=== PATIENT | male | born 1970 | race Caucasian/White ===

== ENCOUNTER 2016-10-17 22:02 | Emergency (ER) | payer BC ==
[~2016-10-17] VITALS: Ht 185.4 cm; Wt 93.0 kg
[2016-10-17] MEDS ORDERED: NS 1000ml 2,800 ML IVLG ONE (22:45)
[2016-10-17] MEDS ORDERED: Ketorolac 30mg Inj IV ONE (22:45)
[2016-10-17] MEDS ORDERED: Acetaminophen 500mg (ES) tab ORAL ONE (22:45)
[2016-10-17 23:23] LABS: APPEARANCE,URINE CLEAR; KETONES,URINE NEGATIVE (NEGATIVE); NITRITE,URINE NEGATIVE (NEGATIVE); PH,URINE 8 (4.5-8.0); UROBILINOGEN,URINE 4 MG/DL (0.0-1.0)
[2016-10-17 23:26] VITALS: BP 125/64
--- NOTE | 2016-10-17 23:29 | Emergency Room Report ---
History of Present Illness General Chief Complaint: Fever Source: Patient Present Illness HPI Patient presents for report of vomiting Headache bodyache Patient reports symptoms started yesterday at 6 PM Remembers eating something at the gym became nauseated and vomited several times Denies any photophobia He however does have posterior neck pain as well And achiness Patient had initially epigastric discomfort for vomiting Otherwise denies any lower abdominal pain denies any dysuria frequency Allergies: Coded Allergies: PENICILLINS (Verified Allergy, Intermediate, hives, 10/17/16) Patient History Past Medical History: see triage record Pertinent Family History: none Reviewed Nursing Documentation: PMH: Agreed, PSxH: Agreed Nursing Documentation-PMH Past Medical History: No Stated History Review of Systems All Other Systems: negative except mentioned in HPI Physical Exam Vital Signs Date Time Temp Pulse Resp B/P Pulse Ox O2 Delivery O2 Flow Rate FiO2 10/17/16 22:03 102.7 102 20 142/82 94 Room Air Sp02 EP Interpretation: reviewed, normal General Appearance: well appearing, no apparent distress Head: normocephalic, atraumatic Eyes: bilateral eye EOMI, bilateral eye PERRL ENT: hearing grossly normal, normal pharynx, TMs + canals normal, uvula midline Neck: full range of motion, supple, no meningismus, no bony tend Respiratory: lungs clear, normal breath sounds, no rhonchi, no respiratory distress, no retraction, no accessory muscle use Cardiovascular #1: normal peripheral pulses, regular rate, rhythm, no edema, no gallop, no JVD, no murmur Gastrointestinal: normal bowel sounds, non tender, soft, no mass, no organomegaly, non-distended, no guarding, no hernia, no pulsatile mass, no rebound Genitourinary: no CVA tenderness Musculoskeletal: normal inspection Neurologic: oriented x3, responsive, 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, motor strength/ tone normal, sensory intact Psychiatric: mood/affect normal Skin: normal color, no rash, warm/dry, palpation normal Lymphatic: normal inspection, no adenopathy Medical Decision Making Diagnostic Impression: Primary Impression: Fever Additional Impression: Viral syndrome ER Course Multiple differentials considered including but not limited to gastroenteritis, viral syndrome, meningitis Patient's blood work is appropriate, the monocyte percentage is mildly elevated On reevaluation patient does not reveal any obvious nuchal rigidity I had a prolonged discussion with the patient regarding further workup and lumbar puncture evaluation for meningitis However in discussion with the patient given the lack of any obvious bacterial meningitis clinically, patient will have initial conservative outpatient trial If there is any worsening of his symptoms or discomfort patient will be required to return for lumbar puncture examination and further testing Labs Test 10/17/16 23:00 White Blood Count 5.1 K/UL (4.8-10.8) Red Blood Count 5.00 M/UL (4.70-6.10) Hemoglobin 15.6 G/DL (14.2-18.0) Hematocrit 43.0 % (42.0-52.0) Mean Corpuscular Volume 86 FL (80-99) Mean Corpuscular Hemoglobin 31.2 PG (27.0-31.0) Mean Corpuscular Hemoglobin Concent 36.2 G/DL (32.0-36.0) Red Cell Distribution Width 10.7 % (11.6-14.8) Platelet Count 199 K/UL (150-450) Mean Platelet Volume 7.1 FL (6.5-10.1) Neutrophils (%) (Auto) 70.3 % (45.0-75.0) Lymphocytes (%) (Auto) 11.7 % (20.0-45.0) Monocytes (%) (Auto) 16.8 % (1.0-10.0) Eosinophils (%) (Auto) 0.6 % (0.0-3.0) Basophils (%) (Auto) 0.5 % (0.0-2.0) Urine Color Yellow Urine Appearance Clear Urine pH 8 (4.5-8.0) Urine Specific [place] 1.010 (1.005-1.035) Urine Protein Negative (NEGATIVE) Urine Glucose (UA) Negative (NEGATIVE) Urine Ketones Negative (NEGATIVE) Urine Occult Blood Negative (NEGATIVE) Urine Nitrite Negative (NEGATIVE) Urine Bilirubin Negative (NEGATIVE) Urine Urobilinogen 4 MG/DL (0.0-1.0) Urine Leukocyte Esterase Negative (NEGATIVE) Sodium Level 137 mEQ/L (135-145) Potassium Level 3.6 mEQ/L (3.4-4.9) Chloride Level 96 mEQ/L (98-107) Carbon Dioxide Level 24 mEQ/L (20-30) Anion Gap 17 (5-15) Blood Urea Nitrogen 15 mg/dL (7-23) Creatinine 1.2 mg/dL (0.7-1.2) Estimat Glomerular Filtration Rate > 60 mL/min (>60) Glucose Level 108 mg/dL (74-106) Lactic Acid Level 0.70 mmol/L (0.66-2.22) Calcium Level 8.9 mg/dL (8.6-10.2) Total Bilirubin 1.5 mg/dL (0.0-1.2) Direct Bilirubin 0.2 mg/dL (0.1-0.3) Aspartate Amino Transf (AST/SGOT) 19 U/L (5-40) Alanine Aminotransferase (ALT/SGPT) 17 U/L (3-41) Alkaline Phosphatase 49 U/L (40-129) Total Creatine Kinase 138 U/L (38-174) Creatine Kinase MB < 1.5 ng/mL (< 6.7) Creatine Kinase MB Relative Index 1.0 Total Protein 7.0 g/dL (6.6-8.7) Albumin 4.0 g/dL (3.5-5.2) Globulin 3.0 g/dL Albumin/Globulin Ratio 1.3 (1.0-2.7) Lipase 22 U/L (< 60) Chest X-Ray Diagnostic Results EP Interpretation: Yes Findings: no consolidation, no effusion, no pneumothorax Number of Views: 1 Last Vital Signs Date Time Temp Pulse Resp B/P Pulse Ox O2 Delivery O2 Flow Rate FiO2 10/17/16 23:26 102.3 76 12 125/64 96 Room Air Status: improved Disposition: HOME, SELF-CARE Condition: Improved Scripts Ibuprofen* (MOTRIN*) 600 Mg Tablet 600 MG ORAL Q8H Y for For Pain, #30 TAB 0 Refills Prov: ANGELES MARTINEZ D.O. 10/18/16 Referrals: NOT CHOSEN [facility]/MD,REFERRING (PCP) Additional Instructions: Patient is provided with the discharge instructions notified to follow up with primary doctor in the next 2-3 days otherwise return to the er with any worsening symptoms. Please note that this report is being documented using [employer] technology. This can lead to erroneous entry secondary to incorrect interpretation by the dictating instrument. ANGELES MARTINEZ D.O. Oct 17, 2016 23:29
[2016-10-17 23:30] LABS: LEUKOCYTE ESTERASE ,URINE NEGATIVE (NEGATIVE); PROTEIN,URINE NEGATIVE (NEGATIVE)
[2016-10-17 23:41] LABS: BASOPHILS % (AUTO) 0.5 % (0.0-2.0); EOSINOPHILS % (AUTO) 0.6 % (0.0-3.0); LYMPHOCYTES % (AUTO) 11.7 % (20.0-45.0); MEAN CORPUSCULAR HEMOGLOBIN 31.2 PG (27.0-31.0); MEAN CORPUSCULAR HGB CONC 36.2 G/DL (32.0-36.0); MEAN CORPUSCULAR VOLUME 86 FL (80-99); MEAN PLATELET VOLUME 7.1 FL (6.5-10.1); MONOCYTES % (AUTO) 16.8 % (1.0-10.0); NEUTROPHILS % (AUTO) 70.3 % (45.0-75.0); PLATELET COUNT 199 K/UL (150-450); RED CELL DISTRIBUTION WIDTH 10.7 % (11.6-14.8); WHITE BLOOD COUNT 5.1 K/UL (4.8-10.8)
[2016-10-17 23:43] LABS: ALANINE AMINOTRANSFERASE 17 U/L (3-41); ALBUMIN/GLOBULIN RATIO 1.3 (1.0-2.7); ANION GAP 17 (5-15); ASPARTATE AMINO TRANSFERASE 19 U/L (5-40); CALCIUM 8.9 mg/dL (8.6-10.2); CARBON DIOXIDE 24 mEQ/L (20-30); CHLORIDE 96 mEQ/L (98-107); CREATININE 1.2 mg/dL (0.7-1.2); GLOMERULAR FILTRATION RATE > 60 mL/min (>60); HEMOLYSIS 3; LIPASE 22 U/L (< 60); POTASSIUM 3.6 mEQ/L (3.4-4.9); SODIUM 137 mEQ/L (135-145)
[2016-10-17 23:53] LABS: CKMB < 1.5 ng/mL (< 6.7)
[2016-10-18 00:04] LABS: BILIRUBIN,DIRECT 0.2 mg/dL (0.1-0.3)
[2016-10-18] MEDS ORDERED: IBUPROFEN600 MG ORAL (00:27)
[2016-10-18 00:42] VITALS: BP_SYST 125; BP_SYST 126; BP_DIAS 64; BP_DIAS 72
--- NOTE | 2016-10-18 09:24 | Diagnostic Imaging Report ---
Indication: Chest Pain Comparison: None A single view chest radiograph was obtained. Findings: Cardiomediastinal appearance is within normal limits for age. Pulmonary vascularity is appropriate. The diaphragmatic contour is smooth and costophrenic angles are sharp. No pleural effusions are identified. The bones are unremarkable. Impression: No acute findings
== END 2016-10-18 00:43 | disposition home or self-care (01) ==
LOC: EMR 23:02
DX: R50.9 Fever, unspecified (principal); B34.9 Viral infection, unspecified; M54.2 Cervicalgia; Z88.0 Allergy status to penicillin
CPT/HCPCS: 36415; 71010; 80053; 81003; 82248; 82550; 82553; 83605; 83690; 85025; 87040; 96360; 96374; 99284; J1885